=== PATIENT | male | born 1950 | race Two or more races ===

== ENCOUNTER 2021-09-28 02:46 | Emergency (ER) | payer MEDICARE, MEDICAID, SELFPAY ==
[2021-09-28 03:01] VITALS: BP 150/67; PULSE 75; RESP 16; TEMP 36.4; O2SAT 97; BMI 36.6
[2021-09-28 04:39] LABS: Hematocrit 39.1 % (42.0-52.0); Hemoglobin 13.4 g/dl (14.0-18.0); Mean Corpuscular HGB Conc 34.3 g/dl (31.0-36.0); Mean Corpuscular Hemoglobin 30.1 pg (27.0-33.0); Mean Corpuscular Volume 87.9 fL (80.0-98.0); Mean Platelet Volume 9.9 fL (9.4-12.4); Platelet Count 149 X10*3/uL (160-400); Red Blood Count 4.45 X10*6/uL (4.60-5.80); Red Cell Distribution Width 13.4 % (11.0-16.0); White Blood Count 7.2 X10*3/uL (4.8-10.8)
[2021-09-28 04:55] LABS: Alanine Aminotransferase 32 U/L (0-40); Albumin Level 3.9 g/dL (3.5-5.0); Alkaline Phosphatase 99 U/L (39-117); Anion Gap 12 (12-20); Aspartate Amino Transferase 27 U/L (5-37); Bilirubin Total 0.3 mg/dL (0.0-1.0); Blood Urea Nitrogen 18 mg/dL (9-16); Calcium 9.4 mg/dL (8.4-10.2); Carbon Dioxide 28 mmol/L (22-29); Chloride 104 mmol/L (96-108); Creatinine Clr Calc Pharmacy 67.4; Estimated Glomerular Filt Rate > 60; Glucose Random 211 mg/dL (60-115); Potassium 3.7 mmol/L (3.3-5.1); Sodium 140 mmol/L (135-145); Total Protein 7.2 g/dL (6.5-8.0)
[2021-09-28 05:04] VITALS: BP 170/78; PULSE 84; RESP 20; O2SAT 97
--- NOTE | 2021-09-28 05:43 | PC.NURSE ---
pt did not want to stay and be seen by provider. pt stated they waited too long. I tried to explain the importance of being seen due to pain and increase redness to leg. pt refused to stay and be seen. Reported to Chelle Ray and Provider DR. Liu
== END 2021-09-28 05:47 | disposition left against medical advice (07) ==
PROVIDERS: Emergency Provider Emergency Medicine; PCP Internal Medicine
DX: M79.662 Pain in left lower leg (principal); L03.116 Cellulitis of left lower limb; E11.9 Type 2 diabetes mellitus without complications; I10 Essential (primary) hypertension
CPT/HCPCS: 36415; 80053; 85027; 99283; 99284